=== PATIENT | male | born 1960 | race Caucasian/White ===

== ENCOUNTER → 2016-12-18 | Outpatient (REF) | payer OTHER | LOC: M LAB REF 13:14 | PROVIDERS: ATTEND Physician Assistant Medical | DX: H92.11 Otorrhea, right ear (principal) ==

== ENCOUNTER → 2019-01-04 | Outpatient (CLI) | payer OTHER ==
--- NOTE | 2019-01-04 16:20 | REP ---
MAXILLOFACIAL CT WITHOUT CONTRAST: HISTORY: Chronic rhinitis. COMPARISON: 04/16/2010 The patient is status postoperative bilateral uncinectomy and partial ethmoidectomy. Mucosal thickening is present in the sinuses. There is complete opacification of the right maxillary sinus. Mild mucosal thickening is present in the left maxillary and right ethmoid sinuses. Minimal mucosal thickening is present in the frontal and sphenoid sinuses There is stacie bullosa of the middle nasal turbinates. There is mild deviation of the nasal septum to the left. A spur is present arising from the left side of the nasal septum. The spur abuts the left inferior nasal turbinate. The cribriform plate, medial wagner of the orbits and optic canals are intact. There is aeration of the right anterior clinoid process. The carotid canals form a segment of the posterolateral wagner of the sphenoid sinus. There is thickening and sclerosis of the wagner of the maxillary and sphenoid sinuses consistent with chronic sinusitis. IMPRESSION:1. Postoperative change as described above. 2. Sinus mucosal thickening as described above. Electronically Signed by Ander Chakraborty MD 01/04/2019 04:22 P
== END ==
LOC: M RAD 13:44
PROVIDERS: ATTEND Physician Assistant Medical
DX: J31.0 Chronic rhinitis (principal)

== ENCOUNTER → 2019-01-28 | Outpatient (REF) | payer OTHER | LOC: M LAB REF 12:20 | PROVIDERS: ATTEND Physician Assistant Medical | DX: J01.00 Acute maxillary sinusitis, unspecified (principal) ==

== ENCOUNTER → 2019-07-07 | Outpatient (REF) | LOC: M LAB LCGH 15:03 | PROVIDERS: ATTEND Surgery | DX: Z12.11 Encounter for screening for malignant neoplasm of colon (principal); K63.5 Polyp of colon ==

== ENCOUNTER → 2023-08-31 | Outpatient (REF) | payer MEDICARE, OTHER | LOC: M LAB REF 17:06 | PROVIDERS: ATTEND Otolaryngology | DX: H60.61 Unspecified chronic otitis externa, right ear (principal); H72.01 Central perforation of tympanic membrane, right ear; J31.0 Chronic rhinitis ==

== ENCOUNTER → 2023-09-23 | Outpatient (CLI) | payer MEDICARE, OTHER | LOC: M PLAIMG 10:04 | PROVIDERS: ATTEND Otolaryngology | DX: H72.01 Central perforation of tympanic membrane, right ear (principal) ==

== ENCOUNTER → 2023-12-07 | Outpatient (CLI) | payer MEDICARE, OTHER ==
[~2023-12-07] MED LIST: PROHANCE 279.3MG/ML 15ML VIAL ONE; PROHANCE 279.3MG/ML 5ML VIAL ONE
== END ==
LOC: M PLAIMG 13:45
PROVIDERS: ATTEND Otolaryngology
DX: H90.A31 Mixed conductive and sensorineural hearing loss, unilateral, right ear with restricted hearing on the contralateral side (principal)
CPT/HCPCS: 70553; A9576

== ENCOUNTER → 2024-01-26 | Outpatient (CLI) | payer MEDICARE, OTHER | LOC: M PLAIMG 09:54 | PROVIDERS: ATTEND Otolaryngology | DX: J32.2 Chronic ethmoidal sinusitis (principal) ==

== ENCOUNTER → 2024-10-28 | Outpatient (CLI) | payer MEDICARE | LOC: M RAD 16:02 | PROVIDERS: ATTEND Physician Assistant Medical | DX: J32.0 Chronic maxillary sinusitis (principal) ==